=== PATIENT | female | born 1985 | race Caucasian/White ===

== ENCOUNTER 2017-01-07 23:25 | Emergency (ER) | payer BC ==
[2017-01-12] MEDS ORDERED: FIORICET1 CAP PO (20:23)
[2017-01-18] MEDS ORDERED: TYLENOL 500MG500 MG PO (00:16)
== END 2017-01-08 00:49 | disposition home or self-care (01) ==
LOC: ED 23:25
DX: G43.019 Migraine without aura, intractable, without status migrainosus (principal); G44.89 Other headache syndrome; R11.0 Nausea
CPT/HCPCS: J1885; J2550

== ENCOUNTER 2017-01-18 00:27 | Emergency (ER) | payer BC ==
[~2017-01-18 00:27] MED LIST: FIORICET1 CAP PO; TYLENOL 500MG500 MG PO
[2017-01-18] MEDS ORDERED: TRAMADOL 50 MG TAB PO (00:36)
== END 2017-01-18 00:50 | disposition home or self-care (01) ==
LOC: ED 00:27
DX: M26.622 Arthralgia of left temporomandibular joint (principal)

== ENCOUNTER → 2017-03-28 | Outpatient (REF) ==
[2017-01-18 00:50] VITALS: BP 141/89
[~2017-03-28] MED LIST changes: +TRAMADOL 50 MG TAB PO
== END ==
LOC: LAB 15:39
DX: R10.2 Pelvic and perineal pain (principal)

== ENCOUNTER 2017-07-19 12:31 | Emergency (ER) | payer BC ==
[~2017-07-19] VITALS: Ht 154.9 cm; Wt 81.8 kg
[2017-07-19] MEDS ORDERED: TROKENDI XR100 MG PO (12:39)
[2017-07-19] MEDS ORDERED: BUTALB-ASPIRIN1 EACH PO (12:40)
[2017-07-19] MEDS ORDERED: ESTRACE 1MG1 MG/TAB PO (12:41)
[2017-07-19 13:45] VITALS: BP 112/72
== END 2017-07-19 13:47 | disposition home or self-care (01) ==
LOC: ED 12:31
DX: R51 Headache (principal); G43.909 Migraine, unspecified, not intractable, without status migrainosus
CPT/HCPCS: J1885; J2550

== ENCOUNTER 2017-11-03 14:51 | Emergency (ER) | payer OTHER ==
[~2017-11-03] VITALS: Ht 157.5 cm; Wt 79.5 kg
[~2017-11-03 14:51] MED LIST changes: +BUTALB-ASPIRIN1 EACH PO; +ESTRACE 1MG1 MG/TAB PO; +TROKENDI XR100 MG PO
[2017-11-03] MEDS ORDERED: ABILIFY5 MG PO (15:00)
[2017-11-03] MEDS ORDERED: CHANTIX 1MG1 MG PO (15:00)
[2017-11-03] MEDS ORDERED: ESCITALOPRAM20 MG PO (15:00)
[2017-11-03] MEDS ORDERED: AMBIEN5 M1 PO (15:00)
[2017-11-03] MEDS ORDERED: ARIPIPRAZOLE15 MG PO (15:00)
[2017-11-03] MEDS ORDERED: NORCO 325 MG-51 TA1 PO (16:13)
[2017-11-03 16:26] VITALS: BP 137/77
== END 2017-11-03 16:19 | disposition home or self-care (01) ==
LOC: ED 14:51
DX: S63.502A Unspecified sprain of left wrist, initial encounter (principal); W00.0XXA Fall on same level due to ice and snow, initial encounter; F17.200 Nicotine dependence, unspecified, uncomplicated; Z88.5 Allergy status to narcotic agent; Z88.0 Allergy status to penicillin

== ENCOUNTER 2017-12-28 18:14 | Emergency (ER) | payer OTHER ==
[~2017-12-28] VITALS: Ht 157.5 cm; Wt 81.8 kg
[~2017-12-28 18:14] MED LIST changes: +ABILIFY5 MG PO; +AMBIEN5 M1 PO; +ARIPIPRAZOLE15 MG PO; +CHANTIX 1MG1 MG PO; +ESCITALOPRAM20 MG PO; +NORCO 325 MG-51 TA1 PO
[2017-12-28] MEDS ORDERED: ESTRADIOL2 M1 PO (18:22)
[2017-12-28 19:02] LABS: EOS # 0.3 (0.04-0.40); EOS % 2.5 % (1.0-5.0); HEMATOCRIT 38.5 % (37.0-47.0); HEMOGLOBIN 12.4 g/dL (12.5-16.0); LYMPH# 3.4 (1.50-4.00); MEAN CELL VOLUME 93 fl (78-100); MEAN CORPUSCULAR HEMOGLOBIN 30 pg (27-31); MEAN CORPUSCULAR HGB CONC 32 g/dL (33-37); MEAN PLATELET VOLUME 9.2 fl (7.4-10.4); MONO # 0.7 (0.20-0.80); NEU # 5.5 (1.40-6.50); PLATELET COUNT 328 K/mm3 (130-400); RED BLOOD COUNT 4.12 M/mm3 (4.10-5.30); RED CELL DISTRIBUTION WIDTH 12.5 % (11.5-14.5); WHITE BLOOD COUNT 9.9 K/mm3 (4.8-10.8)
[2017-12-28 19:11] LABS: URINE APPEARANCE CLEAR; URINE BILIRUBIN NEGATIVE (NEGATIVE); URINE BLOOD NEGATIVE (NEGATIVE); URINE COLOR YELLOW; URINE GLUCOSE NEGATIVE (NEGATIVE); URINE KETONE NEGATIVE (NEGATIVE); URINE LEUKOCYTE ESTERASE NEGATIVE (NEGATIVE); URINE NITRATE NEGATIVE (NEGATIVE); URINE PROTEIN(semi-quant) NEGATIVE (NEGATIVE); URINE UROBILINOGEN NORMAL (NORMAL); URINE WBC 0-1 /hpf (0-3)
[2017-12-28 19:12] LABS: ALBUMIN 3.7 g/dL (3.5-5.0); BUN/CREATININE RATIO 21.5 (6.0-26.0); POTASSIUM 3.9 mmol/L (3.6-5.0); TOTAL BILIRUBIN 0.1 mg/dL (0.2-1.3)
[2017-12-28 20:00] VITALS: BP 126/66
== END 2017-12-28 20:00 | disposition home or self-care (01) ==
LOC: ED 18:14
PROVIDERS: Family Medicine
DX: R10.31 Right lower quadrant pain (principal); F17.200 Nicotine dependence, unspecified, uncomplicated; F31.9 Bipolar disorder, unspecified; Z90.710 Acquired absence of both cervix and uterus
CPT/HCPCS: J1885

== ENCOUNTER 2018-07-19 16:29 | Emergency (ER) | payer SELFPAY ==
[~2018-07-19] VITALS: Ht 157.5 cm; Wt 100.0 kg
[~2018-07-19 16:29] MED LIST changes: +ESTRADIOL2 M1 PO
[2018-07-19] MEDS ORDERED: IBU600 MG PO (17:58)
[2018-07-19] MEDS ORDERED: NORCO 325 MG-51 TA1 PO (17:58)
[2018-07-19] MEDS ORDERED: CYCLOBENZAPRINE10 M1 PO (17:58)
[2018-07-19 18:04] VITALS: BP 130/80
== END 2018-07-19 18:04 | disposition home or self-care (01) ==
LOC: ED 16:29
DX: M54.5 Low back pain (principal); Z88.5 Allergy status to narcotic agent
CPT/HCPCS: J1885; J2360

== ENCOUNTER 2018-08-20 20:04 | Emergency (ER) | payer SELFPAY ==
[~2018-08-20] VITALS: Ht 157.5 cm; Wt 107.0 kg
[~2018-08-20 20:04] MED LIST changes: +CYCLOBENZAPRINE10 M1 PO; +IBU600 MG PO
[2018-08-20 21:18] LABS: EOS # 0.3 (0.04-0.40); EOS % 2.9 % (1.0-5.0); HEMATOCRIT 42.9 % (37.0-47.0); HEMOGLOBIN 14.5 g/dL (12.5-16.0); MEAN CELL VOLUME 93 fl (78-100); MEAN CORPUSCULAR HEMOGLOBIN 31 pg (27-31); MEAN CORPUSCULAR HGB CONC 34 g/dL (33-37); MEAN PLATELET VOLUME 10.3 fl (7.4-10.4); MONO # 0.7 (0.20-0.80); NEU # 5.2 (1.40-6.50); PLATELET COUNT 298 K/mm3 (130-400); RED BLOOD COUNT 4.64 M/mm3 (4.10-5.30); RED CELL DISTRIBUTION WIDTH 12.7 % (11.5-14.5); WHITE BLOOD COUNT 9.3 K/mm3 (4.8-10.8)
[2018-08-20 21:38] LABS: ALBUMIN 4.3 g/dL (3.5-5.0); CALCIUM 9.5 mg/dL (8.4-10.2); TOTAL BILIRUBIN 0.4 mg/dL (0.2-1.3); TOTAL PROTEIN 7.6 g/dL (6.3-8.2)
[2018-08-20 21:46] LABS: CKMB ISOENZYME 0.5 ng/mL (0.6-3.5)
[2018-08-20 21:47] LABS: TROPONIN-I < 0.03 ng/mL (0.00-0.06)
[2018-08-20] MEDS ORDERED: NAPROSYN500 M1 PO (22:15)
[2018-08-20 22:29] VITALS: BP 114/77
== END 2018-08-20 22:20 | disposition home or self-care (01) ==
LOC: ED 20:04
PROVIDERS: Nurse Practitioner Family
DX: M94.0 Chondrocostal junction syndrome [Tietze] (principal); F41.9 Anxiety disorder, unspecified; F17.200 Nicotine dependence, unspecified, uncomplicated; F31.9 Bipolar disorder, unspecified
CPT/HCPCS: J1885; J2405; J7030

== ENCOUNTER → 2018-11-18 | Outpatient (CLI) | payer BC ==
[~2018-11-18] MED LIST changes: +NAPROSYN500 M1 PO
== END ==
LOC: RAD 14:43
DX: M25.572 Pain in left ankle and joints of left foot (principal); M79.672 Pain in left foot; Z87.81 Personal history of (healed) traumatic fracture

== ENCOUNTER → 2018-12-03 | Outpatient (CLI) | payer BC | LOC: MAMMO 11:22 | DX: N64.4 Mastodynia (principal) ==